=== PATIENT | female | born 1990 | race African-American/Black ===

== ENCOUNTER 2017-04-29 22:15 | Emergency (ER) | payer OTHER, SELFPAY ==
[2017-04-29 23:24] LABS: Bilirubin Small (Negative); Blood, Urine Negative (Negative); Clarity CLEAR (Clear); Glucose, Urine (Dipstick) Negative (Negative); Leukocyte Small (Negative); Nitrite Negative (Negative); Protein, Urine (Dipstick) Trace mg/dL (Neg-Trace); Specific Gravity, Urine 1.026 (1.002-1.036); pH, Urine 6.5 (5.0-9.0)
[2017-04-29 23:28] LABS: Bacteria/HPF Rare-Few HPF (None Seen); Hyaline Casts/LPF 0-3 HYALINE CAST LPF (0-3 Hyaline); Pathc Cast-AUWi Flag 0.13 (0-2.49); RBC/HPF 0-3 HPF (0-3); Squamous Epithelial 0-3 HPF (0-3)
[2017-04-29 23:29] LABS: Pregnancy Test - Urine (BHCG) Negative (Negative)
[2017-04-29 23:30] LABS: Pregu Control Background? CLEAR/WHITE (CLR/WHITE); Pregu Control Bar Appear? YES (CONTROL BAR); Specific Gravity 1.026 (1.002-1.036)
--- NOTE | 2017-04-29 23:31 | RAD ---
LUMBAR SPINE THREE VIEWS: History: Back pain. FINDINGS: Lumbar vertebra maintain normal height and alignment. Disc spaces are normally maintained. No evidenc e of spondylolisthesis. Five lumbar type vertebrae. IMPRESSION: Unremarkable lumbar spine. POS: [facility]
[2017-04-29] MEDS ORDERED: Diazepam 5 MG TAB ONE (23:36)
[2017-04-29] MEDS ORDERED: Ketorolac Tromethamine 30 MG/ML VIAL ONE (23:36)
== END 2017-04-30 00:18 | disposition home or self-care (01) ==
LOC: ERS 22:15
DX: N39.0 Urinary tract infection, site not specified (principal); M54.16 Radiculopathy, lumbar region
CPT/HCPCS: 72100; 81003; 81015; 81025; 96372; J1885

== ENCOUNTER 2017-10-24 11:48 | Emergency (ER) | payer SELFPAY ==
[2017-10-24] MEDS ORDERED: HYDROcodone/Acetaminophen 10/325 mg Tablet ONE (12:57)
[2017-10-24] MEDS ORDERED: Cyclobenzaprine 10 MG TAB ONE (12:57)
== END 2017-10-24 13:10 | disposition home or self-care (01) ==
LOC: ERS 11:48
DX: M54.42 Lumbago with sciatica, left side (principal)
CPT/HCPCS: 99283

== ENCOUNTER 2017-12-14 22:18 | Inpatient (IN) | payer SELFPAY ==
[2017-12-14 23:11] LABS: #Basophils 0.1 thou/uL (0.0-0.2); #Eosinphils 0.2 thou/uL (0.0-0.7); #Lymphocytes 3.5 thou/uL (1.20-3.40); #Monocytes 0.6 thou/uL (0.11-0.59); #Neutrophils 4.9 thou/uL (1.40-6.50); %Eosinophils 2.4 % (0.0-10.0); %Lymphocytes 37.7 % (21.0-51.0); %Monocytes 6.5 % (0.0-10.0); %Neutrophils 52.4 % (42.0-75.0); Hemoglobin 12.3 g/dL (12.0-16.0); Mean Corpuscular HGB CONC 33.4 g/dL (32.0-36.0); Mean Corpuscular Hemoglobin 28.9 pg (27.0-31.0); Mean Corpuscular Volume 86.5 fL (78.0-98.0); Mean Platelet Volume 10.5 fL (7.4-10.4); Platelet Count 307 thou/uL (130-400); RBC Distribution Width 13.2 % (11.5-14.5); Red Blood Cell (RBC) Count 4.25 mill/uL (4.20-5.40); White Blood Cell (WBC) Count 9.4 thou/uL (4.8-10.8)
[2017-12-14 23:32] LABS: ALT (SGPT) 76 U/L (8-55); AST (SGOT) 42 U/L (5-34); Albumin 3.9 g/dL (3.5-5.0); Alkaline Phosphatase 60 U/L (40-150); Anion Gap 13 mmol/L (10-20); BUN (Urea Nitrogen) 7 mg/dL (7.0-18.7); Bilirubin, Total 0.3 mg/dL (0.2-1.2); Calc. Creatinine Clearance 0 mL/min (70-130); Calcium 9.5 mg/dL (7.8-10.44); Carbon Dioxide 27 mmol/L (22-29); Chloride 101 mmol/L (98-107); Estimated GFR-MDRD Greater than 90; Glucose 87 mg/dL (70-105); Potassium 3.5 mmol/L (3.5-5.1); Protein, Total 7.9 g/dL (6.0-8.3); Sodium 137 mmol/L (136-145)
[2017-12-14 23:36] LABS: CKMB 0.4 ng/mL (0-6.6); Troponin I Less than 0.010 ng/mL (< 0.028)
[2017-12-15] MEDS ORDERED: Lidocaine Viscous Sol 2% 15 ml UD Cup ONE (01:15)
[2017-12-15] MEDS ORDERED: Mag-Al 1200 mg/1200 mg/30 ML UDCUP ONE (01:15)
[2017-12-15 01:21] LABS: BHCG - Serum Negative (NEGATIVE); Pregs Control Background? CLEAR/WHITE (CLR/WHITE); Pregs Control Bar Appear? YES (CONTROL BAR)
[2017-12-15] MEDS ORDERED: Piperacillin/Tazobactam 4.5 GM VIAL ONE (03:28)
[2017-12-15] MEDS ORDERED: Morphine 4 MG/ML VIAL SLOW IVP PRN (04:02)
[2017-12-15] MEDS ORDERED: Ondansetron HCl/PF 4 MG/2 ML Vial IVP PRN ×2 (04:02→11:13)
--- NOTE | 2017-12-15 04:22 | HP ---
CHIEF COMPLAINT: Right upper quadrant abdominal pain. HISTORY: This is a 27-year-old morbidly obese female with 3-day history of right upper quadrant pain . No radiation, no nausea or vomiting, no previous episodes. No change in bowels or urine. PAST MEDICAL HISTORY: Significant for morbid obesity. PAST SURGICAL HISTORY: She has had a section and a right oophorectomy for cyst. MEDICATIONS: She is on oral contraceptives for dysfunctional bleeding. ALLERGIES: No known drug allergies. SOCIAL HISTORY: She is single. She works in customer service. No tobacco, social alcohol. FAMILY HISTORY: Hypertension, arthritis. PHYSICAL EXAMINATION: GENERAL: She is an obese female lying still, in minimal distress. HEENT: No jaundice. LUNGS: Clear. HEART: Regular rate and rhythm. ABDOMEN: Obese, tender in the right upper quadrant. No palpable hernias. She has multiple well-hea led surgical scars from laparoscopic oophorectomy. EXTREMITIES: Unremarkable. LABORATORY DATA AND X-RAY FINDINGS: Her white count is 9.4, H&H 12 and 36, platelet count 307. Elec trolytes are fine. Her AST is 42, ALT is 76, total bilirubin of 0.3. HCG negative. IMAGING: Ultrasound shows a very large 11 cm, distended gallbladder with an impacted gallstone in th e neck. ASSESSMENT: Acute cholecystitis. PLAN: Laparoscopic cholecystectomy with possible cholangiogram. CONSENT: I have discussed the planned procedure as well as risk of bleeding, infection, injury to bi le duct, injury to bowel, need to open. She understands and gives informed consent.
[2017-12-15 05:31] VITALS: BMI 41.8
[2017-12-15] MEDS: cefOXitin 2 GM in Sodium Chloride 0.9% 100 ML IVPB SCH ×3 (06:12→21:55)
[2017-12-15 06:19] LABS: Pregnancy Test - Urine (BHCG) Negative (Negative); Pregu Control Background? CLEAR/WHITE (CLR/WHITE); Pregu Control Bar Appear? YES (CONTROL BAR); Specific Gravity 1.016 (1.002-1.036)
--- NOTE | 2017-12-15 08:39 | ULT ---
PRELIMINARY REPORT/[facility]/EMERGENCY AFTER HOURS PROCEDURE: EXAM: US Abdomen Limited, Right Upper Quadrant CLINICAL HISTORY: 27 years old, female; Pain; Other: Ruq pain, elevated lfts TECHNIQUE: Real-time ultrasound of the right upper quadrant with image documentation. COMPARISON: No relevant prior studies available. FINDINGS: At least two prominent 2 cm shadowing gallstones within the gallbladder, one in the region of the gal lbladder neck. There also appears to be some biliary sludge in the gallbladder. The gallbladder appears upper normal to mildly prominent in size. No definite gallbladder wall thickening or pericholecystic fluid. Technologist states patient is tender over the gallbladder region during scanning. No biliary dilation, common duct measures 3.6 mm. Unremarkable liver, no focal abnormality. Visible pancreas unremarkable. Images of the right kidney show no hydronephrosis. IMPRESSION: Cholelithiasis, see additional details above. No biliary tree dilation. Thank you for allowing us to participate in the care of your patient. Dictated and Authenticated by: Papa Sherwood MD 12/15/2017 2:04 AM Central Time ([place] & [place]) FINAL REPORT RIGHT UPPER QUADRANT ULTRASOUND: EMERGENT AFTER HOURS EXAM TIME: 1:22 a.m. DATE: 12/15/17. FINDINGS/IMPRESSION: Liver echogenicity is coarse throughout. Considerable gallstones within the gallbladder with minimal distention and sludge with a positive Kang's sign. No ductal dilatation. Report in agreement with preliminary report given on-call by Mio. POS: [facility]
[2017-12-15] MEDS ORDERED: Bupivacaine HCl 0.5%/Epinephrine 1:200,000/PF 30 ml Vial ONE (09:25)
[2017-12-15] MEDS ORDERED: Fentanyl 100 MCG/2 ML VIAL ONE ×3 (09:57→11:35)
[2017-12-15] MEDS ORDERED: CEFAZOLIN 1 GM VIAL ONE (10:18)
[2017-12-15] MEDS ORDERED: SUGAMMADEX SODIUM 200 MG/2 ML VIAL ONE (11:06)
[2017-12-15] MEDS ORDERED: hydrALAZINE 20 MG/ML VIAL SLOW IVP PRN (11:13)
[2017-12-15] MEDS ORDERED: Promethazine HCl 25 MG/ML VIAL IM PRN (11:13)
[2017-12-15] MEDS ORDERED: Calcium Carbonate 500 MG ChewTAB PO PRN (11:13)
[2017-12-15] MEDS ORDERED: Mag-Al 1200 mg/1200 mg/30 ML UDCUP PO PRN (11:13)
[2017-12-15] MEDS ORDERED: HYDROcodone/Acetaminophen 10/325 mg Tablet PO PRN (11:13)
[2017-12-15] MEDS ORDERED: Dextrose 50% Abboject 50 ML SYRINGE SLOW IVP PRN (11:13)
[2017-12-15] MEDS ORDERED: Dextrose 5% in Water 1,000 ML IV PRN (11:13)
--- NOTE | 2017-12-15 11:15 | RAD ---
CHEST PA AND LATERAL: HISTORY: A 27-year-old female with a history of epigastric abdominal pain burning down throat into stomach. FINDINGS/ IMPRESSION: Heart size is normal. The lungs are clear. No pneumonia, edema, or pleural effusions or other acute process. POS: [facility]
--- NOTE | 2017-12-15 12:32 | OP ---
PREOPERATIVE DIAGNOSIS: Acute cholecystitis. SURGEON: Ilya Sorto M.D. PROCEDURE PERFORMED: Laparoscopic cholecystectomy. INDICATIONS: A 27-year-old female with a 2-day history of severe right upper quadrant pain associate d with nausea. Ultrasound shows a distended gallbladder with an impacted gallstone, thickened wall. FINDINGS: A thickened wall. The bile was thick and creamy. There was a large impacted gallstone at the neck, a small cystic duct. PROCEDURE: After informed consent was obtained, the patient was taken to the operating room and give n general endotracheal anesthesia. She was placed in the supine position. The abdomen was prepped a nd draped in usual fashion. Local anesthesia infiltrated subcutaneously and deep, then a small midli ne incision was performed just above the umbilicus. The subcu divided sharply. The fascia grasped a nd two stay sutures placed on either side of midline. Midline incised. Digital palpation revealed n o local adhesions. A blunt 10-12 mm trocar inserted. Pneumoperitoneum was created to a pressure of 15 mmHg. Zero degree laparoscope inserted and under direct vision, three 5 mm ports placed subcostal ly. The gallbladder was very distended. An aspirating needle was inserted within the gallbladder an d 60 mL of thick brownish bile was removed. This was sent for culture. The gallbladder then grasped and advanced superiorly. The peritoneum dissected distally to expose the duct artery and critical v iew. These were triply ligated with Hemoclips and divided. The gallbladder was removed from its fos sa utilizing electrocautery. It was placed in an Endosac and removed from the abdomen in the Endosac . Hemostasis was assured. Trocars and retractors removed. The fascia closed with interrupted 0 Jensen ryl suture. The skin closed with interrupted 4-0 Rapide. Dermabond applied. The patient tolerated the procedure well and was transferred to recovery in good condition. Sponge and needle count verifi ed correct x2.
[2017-12-15] MEDS: Ketorolac Tromethamine 30 MG/ML VIAL IVP SCH ×2 (13:15→18:07)
[2017-12-15] MEDS: D5 1/2 NS w/20 mEq KCL 1,000 ML IV SCH ×2 (13:15→21:56)
[2017-12-15] MEDS ORDERED: Ondansetron HCl/PF 4 MG/2 ML Vial ONE (15:08)
[2017-12-15] MEDS ORDERED: Glycopyrrolate 0.2 MG/ML 5 ML SYRINGE ONE (15:08)
[2017-12-15] MEDS ORDERED: Ketorolac Tromethamine 30 MG/ML VIAL ONE (15:08)
[2017-12-15] MEDS ORDERED: PROPOFOL 200 MG/20 ML VIAL ONE (15:08)
[2017-12-15] MEDS ORDERED: Dexamethasone 20 MG/5 ML VIAL ONE (15:08)
[2017-12-15] MEDS: HYDROcodone/Acetaminophen 10/325 mg Tablet PO PRN (16:11)
[2017-12-15] MEDS: Famotidine 20 MG TAB PO SCH (21:56)
[2017-12-15] MEDS: Famotidine/PF 20 mg/2ml Vial SLOW IVP SCH (23:04)
[2017-12-16] MEDS: Ketorolac Tromethamine 30 MG/ML VIAL IVP SCH ×3 (00:01→12:03)
[2017-12-16] MEDS: D5 1/2 NS w/20 mEq KCL 1,000 ML IV SCH (04:19)
[2017-12-16 04:29] LABS: ALT (SGPT) 81 U/L (8-55); AST (SGOT) 52 U/L (5-34); Albumin 3.5 g/dL (3.5-5.0); Alkaline Phosphatase 60 U/L (40-150); Anion Gap 14 mmol/L (10-20); BUN (Urea Nitrogen) 6 mg/dL (7.0-18.7); Bilirubin, Total 0.4 mg/dL (0.2-1.2); Calc. Creatinine Clearance 263 mL/min (70-130); Calcium 9.2 mg/dL (7.8-10.44); Carbon Dioxide 23 mmol/L (22-29); Chloride 103 mmol/L (98-107); Estimated GFR-MDRD Greater than 90; Globulin 3.7 g/dL (2.4-3.5); Glucose 94 mg/dL (70-105); Potassium 3.6 mmol/L (3.5-5.1); Protein, Total 7.2 g/dL (6.0-8.3); Sodium 136 mmol/L (136-145)
[2017-12-16 04:39] LABS: #Basophils 0.1 thou/uL (0.0-0.2); #Lymphocytes 1.7 thou/uL (1.20-3.40); #Monocytes 0.6 thou/uL (0.11-0.59); #Neutrophils 6.6 thou/uL (1.40-6.50); %Basophils 0.6 % (0.0-1.0); %Eosinophils 0.1 % (0.0-10.0); %Lymphocytes 18.9 % (21.0-51.0); %Monocytes 6.7 % (0.0-10.0); %Neutrophils 73.7 % (42.0-75.0); Hemoglobin 12.2 g/dL (12.0-16.0); Mean Corpuscular HGB CONC 32.9 g/dL (32.0-36.0); Mean Corpuscular Hemoglobin 28.6 pg (27.0-31.0); Mean Corpuscular Volume 86.9 fL (78.0-98.0); Platelet Count 251 thou/uL (130-400); RBC Distribution Width 13.2 % (11.5-14.5); Red Blood Cell (RBC) Count 4.25 mill/uL (4.20-5.40)
[2017-12-16] MEDS: cefOXitin 2 GM in Sodium Chloride 0.9% 100 ML IVPB SCH (05:58)
[2017-12-16] MEDS: Famotidine/PF 20 mg/2ml Vial SLOW IVP SCH (08:50)
[2017-12-16] MEDS ORDERED: Enoxaparin Sodium 40 MG/0.4 ML SYRINGE SC SCH (09:00)
[2017-12-16] MEDS: Famotidine 20 MG TAB PO SCH (09:42)
[2017-12-16] MEDS: HYDROcodone/Acetaminophen 10/325 mg Tablet PO PRN (12:01)
[2017-12-16 13:09] VITALS: BP 161/75; TEMP 98.4
--- NOTE | 2017-12-16 15:14 | DIS ---
DATE OF ADMISSION: 12/15/2017 DATE OF DISCHARGE: 12/16/2017 DISCHARGE DIAGNOSIS: Acute cholecystitis. PROCEDURES DURING ADMISSION: Laparoscopic cholecystectomy. HOSPITAL COURSE: The patient was admitted, given IV fluids, IV antibiotics, taken to the operating r oom where she underwent a laparoscopic cholecystectomy. Postoperatively, she has done well. Pain is minimal. She is tolerating a regular diet. She is discharged home on hydrocodone and Zofran. She will follow up with me in 2 weeks.
== END 2017-12-16 12:20 | disposition home or self-care (01) | DRG 418 ==
LOC: ERS 22:18 → SURG A 12-15 05:12
PROVIDERS: ADMIT Surgery; ATTEND Surgery
PROC: 0FT44ZZ Resection of Gallbladder, Percutaneous Endoscopic Approach (ICD-10-PCS; principal; 2017-12-15)
DX: K81.0 Acute cholecystitis (principal); Z68.41 Body mass index [BMI] 40.0-44.9, adult; E66.01 Morbid (severe) obesity due to excess calories
CPT/HCPCS: 36415; 71046; 76705; 80053; 81025; 82553; 83690; 84484; 84703; 85025; 87070; 87205; 88304; 93005; 96365; A4216; J0131; J0670; J0690; J0694; J1100; J1885; J2405; J2543; J2704; J3010; J7050; S0028

== ENCOUNTER 2020-02-03 10:09 | Emergency (ER) | payer SELFPAY ==
[2020-02-03 10:48] LABS: #Basophils 0.1 thou/uL (0.0-0.2); #Eosinphils 0.2 thou/uL (0.0-0.7); #Monocytes 0.6 thou/uL (0.11-0.59); #Neutrophils 5.3 thou/uL (1.40-6.50); %Basophils 1.3 % (0.0-1.0); %Eosinophils 2.2 % (0.0-10.0); %Lymphocytes 32.8 % (21.0-51.0); %Monocytes 6.4 % (0.0-10.0); %Neutrophils 57.3 % (42.0-75.0); Hemoglobin 13.2 g/dL (12.0-16.0); Mean Corpuscular HGB CONC 33.4 g/dL (32.0-36.0); Mean Corpuscular Hemoglobin 29.2 pg (27.0-31.0); Mean Corpuscular Volume 87.3 fL (78.0-98.0); Mean Platelet Volume 9.5 fL (7.4-10.4); Platelet Count 323 thou/uL (130-400); RBC Distribution Width 12.7 % (11.5-14.5); White Blood Cell (WBC) Count 9.2 thou/uL (4.8-10.8)
[2020-02-03 10:53] LABS: BHCG - Serum Negative (NEGATIVE); Pregs Control Background? CLEAR/WHITE (CLR/WHITE); Pregs Control Bar Appear? YES (CONTROL BAR)
[2020-02-03 11:27] LABS: ALT (SGPT) 17 U/L (8-55); AST (SGOT) 15 U/L (5-34); Albumin 3.5 g/dL (3.5-5.0); Alkaline Phosphatase 58 U/L (40-110); Anion Gap 13 mmol/L (10-20); BUN (Urea Nitrogen) 7 mg/dL (7.0-18.7); Bilirubin, Total 0.3 mg/dL (0.2-1.2); Calc. Creatinine Clearance 0 mL/min (70-130); Calcium 9.1 mg/dL (7.8-10.44); Carbon Dioxide 23 mmol/L (22-29); Chloride 105 mmol/L (98-107); Estimated GFR-MDRD Greater than 90; Globulin 4.2 g/dL (2.4-3.5); Glucose 82 mg/dL (70-105); Lipase 14 U/L (8-78); Potassium 3.6 mmol/L (3.5-5.1); Protein, Total 7.7 g/dL (6.0-8.3); Sodium 137 mmol/L (136-145)
[2020-02-03 13:04] LABS: Bacteria/HPF None Seen HPF (None Seen); Bilirubin Negative (Negative); Blood, Urine Negative (Negative); Clarity Clear (Clear); Glucose, Urine (Dipstick) Normal (Negative); Ketone, Urine Negative (Negative); Leukocyte 25 Leu/uL (Negative); Nitrite Negative (Negative); Protein, Urine (Dipstick) Negative (Neg-Trace); RBC/HPF 0-3 HPF (0-3); Specific Gravity, Urine 1.013 (1.002-1.036); Squamous Epithelial 0-3 HPF (0-3); Urobilinogen Normal mg/dL (Less than 2); WBC/HPF 0-3 HPF (0-3); pH, Urine 6.5 (5.0-9.0)
--- NOTE | 2020-02-03 13:26 | CT ---
CT ABDOMEN AND PELVIS WITHOUT CONTRAST: Date: 02/03/2020 HISTORY: Abdominal pain in right upper quadrant radiating to the epigastric area. Diarrhea. FINDINGS: Comparison made with the contrast enhanced exam of 03/27/2014. Absence of oral and IV contrast reduces the sensitivity of exam, particularly for evaluation of solid organs and bowel. The lung bases are clear. The patient is post cholecystectomy. No free air or free fluid is seen in the abdomen or pelvis. The small bowel loops are not abnormally dilated. A normal appearing appendix is present. No calculi noted in the kidneys, ureters, or the urinary bladder. No hydroureteronephrosis is noted o n either side. Uterus is present. The aorta is of normal caliber. Bony structures are unremarkable. IMPRESSION: No CT evidence of urinary tract calculi/obstruction or appendicitis. POS: [facility]
== END 2020-02-03 12:50 | disposition home or self-care (01) ==
LOC: ERS 10:09
DX: R10.9 Unspecified abdominal pain (principal); R19.7 Diarrhea, unspecified; Z79.899 Other long term (current) drug therapy
CPT/HCPCS: 36415; 74176; 80053; 81003; 81015; 83690; 84703; 85025

== ENCOUNTER 2020-02-04 19:35 | Emergency (ER) | payer BC, SELFPAY ==
[2020-02-04 20:05] LABS: Bilirubin Negative (Negative); Blood, Urine Negative (Negative); Clarity Clear (Clear); Glucose, Urine (Dipstick) Normal (Negative); Ketone, Urine Negative (Negative); Leukocyte 75 Leu/uL (Negative); Nitrite Negative (Negative); Pregnancy Test - Urine (BHCG) Negative (Negative); Pregu Control Background? CLEAR/WHITE (CLR/WHITE); Pregu Control Bar Appear? YES (CONTROL BAR); Protein, Urine (Dipstick) Negative (Neg-Trace); RBC/HPF 0-3 HPF (0-3); Specific Gravity 1.019 (1.002-1.036); Specific Gravity, Urine 1.019 (1.002-1.036); Squamous Epithelial 0-3 HPF (0-3); Urobilinogen Normal mg/dL (Less than 2); pH, Urine 6.5 (5.0-9.0)
[2020-02-04 20:06] LABS: Bacteria/HPF 1+ HPF (None Seen)
[2020-02-04] MEDS ORDERED: Lidocaine Viscous Sol 2% 15 ml UD Cup ONE (22:12)
[2020-02-04] MEDS ORDERED: Mag-Al 1200 mg/1200 mg/30 ML UDCUP ONE (22:12)
== END 2020-02-04 22:44 | disposition home or self-care (01) ==
LOC: ERS 19:35
DX: R14.0 Abdominal distension (gaseous) (principal); R10.9 Unspecified abdominal pain
CPT/HCPCS: 81003; 81015; 81025; 99284

== ENCOUNTER 2020-04-16 15:26 | Emergency (ER) | payer BC, SELFPAY ==
--- NOTE | 2020-04-16 15:48 | RAD ---
XR Chest 1 View Portable HISTORY: Dyspnea, chest pain, syncope COMPARISON: 12/27/2017 FINDINGS: The heart size is normal. The lungs are well expanded without focal areas of consolidation, pneumothorax or pleural effusions. IMPRESSION: No radiographic evidence of acute cardiopulmonary process.
[2020-04-16 16:05] LABS: #Basophils 0.1 thou/uL (0.0-0.2); #Eosinphils 0.2 thou/uL (0.0-0.7); #Lymphocytes 3.5 thou/uL (1.20-3.40); #Monocytes 0.7 thou/uL (0.11-0.59); #Neutrophils 8.5 thou/uL (1.40-6.50); %Basophils 0.9 % (0.0-1.0); %Eosinophils 1.3 % (0.0-10.0); %Lymphocytes 26.9 % (21.0-51.0); %Monocytes 5.5 % (0.0-10.0); %Neutrophils 65.4 % (42.0-75.0); Hemoglobin 12.9 g/dL (12.0-16.0); Mean Corpuscular HGB CONC 32.5 g/dL (32.0-36.0); Mean Corpuscular Hemoglobin 28.4 pg (27.0-31.0); Mean Corpuscular Volume 87.3 fL (78.0-98.0); Mean Platelet Volume 9.9 fL (7.4-10.4); Platelet Count 338 thou/uL (130-400); RBC Distribution Width 13.6 % (11.5-14.5); Red Blood Cell (RBC) Count 4.54 mill/uL (4.20-5.40)
[2020-04-16 16:25] LABS: BHCG - Serum Negative (NEGATIVE); Pregs Control Background? CLEAR/WHITE (CLR/WHITE); Pregs Control Bar Appear? YES (CONTROL BAR)
[2020-04-16 16:33] LABS: ALT (SGPT) 24 U/L (8-55); AST (SGOT) 20 U/L (5-34); Albumin 3.8 g/dL (3.5-5.0); Alkaline Phosphatase 68 U/L (40-110); Anion Gap 16 mmol/L (10-20); BUN (Urea Nitrogen) 8 mg/dL (7.0-18.7); Bilirubin, Total 0.2 mg/dL (0.2-1.2); CK (CPK) 64 U/L (29-168); Calc. Creatinine Clearance 0 mL/min (70-130); Calcium 9.3 mg/dL (7.8-10.44); Carbon Dioxide 23 mmol/L (22-29); Chloride 103 mmol/L (98-107); Globulin 4.1 g/dL (2.4-3.5); Glucose 83 mg/dL (70-105); Lipase 12 U/L (8-78); Potassium 3.9 mmol/L (3.5-5.1); Protein, Total 7.9 g/dL (6.0-8.3); Sodium 138 mmol/L (136-145)
[2020-04-16 16:54] LABS: Bilirubin Negative (Negative); Blood, Urine Negative (Negative); Clarity Clear (Clear); Glucose, Urine (Dipstick) Normal (Negative); Ketone, Urine Negative (Negative); Leukocyte 25 Leu/uL (Negative); Nitrite Negative (Negative); Protein, Urine (Dipstick) Negative (Neg-Trace); RBC/HPF 0-3 HPF (0-3); Specific Gravity, Urine 1.016 (1.002-1.036); Urobilinogen Normal mg/dL (Less than 2)
[2020-04-16 16:55] LABS: Bacteria/HPF 1+ HPF (None Seen)
[2020-04-16] MEDS ORDERED: Acetaminophen 500 MG TAB ONE (18:47)
[2020-04-16 20:19] LABS: Troponin I Less than 0.010 ng/mL (< 0.028)
== END 2020-04-16 21:19 | disposition home or self-care (01) ==
LOC: ERS 15:26
DX: R07.89 Other chest pain (principal)
CPT/HCPCS: 36415; 71045; 80053; 81003; 81015; 82550; 83690; 84443; 84484; 84703; 85025; 85379; 93005

== ENCOUNTER 2021-10-17 10:29 | Emergency (ER) | payer SELFPAY ==
[2021-10-17 10:52] LABS: #Basophils 0.1 thou/uL (0.0-0.2); #Eosinphils 0.1 thou/uL (0.0-0.7); #Lymphocytes 2.2 thou/uL (1.20-3.40); #Monocytes 0.7 thou/uL (0.11-0.59); #Neutrophils 6.7 thou/uL (1.40-6.50); %Basophils 0.8 % (0.0-1.0); %Eosinophils 1.4 % (0.0-10.0); %Monocytes 7.3 % (0.0-10.0); %Neutrophils 68.4 % (42.0-75.0); Hemoglobin 13.4 g/dL (12.0-16.0); Mean Corpuscular HGB CONC 31.6 g/dL (32.0-36.0); Mean Corpuscular Hemoglobin 28.4 pg (27.0-31.0); Mean Corpuscular Volume 89.7 fL (78.0-98.0); Mean Platelet Volume 9.3 fL (7.4-10.4); Platelet Count 368 thou/uL (130-400); RBC Distribution Width 13.1 % (11.5-14.5); Red Blood Cell (RBC) Count 4.74 mill/uL (4.20-5.40); White Blood Cell (WBC) Count 9.8 thou/uL (4.8-10.8)
[2021-10-17 11:20] LABS: ALT (SGPT) 11 U/L (8-55); AST (SGOT) 11 U/L (5-34); Albumin 3.8 g/dL (3.5-5.0); Alkaline Phosphatase 64 U/L (40-110); Anion Gap 13 mmol/L (10-20); BUN (Urea Nitrogen) 7 mg/dL (7.0-18.7); Bilirubin, Total 0.5 mg/dL (0.2-1.2); Calc. Creatinine Clearance 0 mL/min (70-130); Calcium 9.3 mg/dL (7.8-10.44); Carbon Dioxide 25 mmol/L (22-29); Chloride 104 mmol/L (98-107); Estimated GFR 113; Globulin 4.3 g/dL (2.4-3.5); Glucose 85 mg/dL (70-105); Lipase 10 U/L (8-78); Potassium 3.6 mmol/L (3.5-5.1); Protein, Total 8.1 g/dL (6.0-8.3); Sodium 138 mmol/L (136-145)
[2021-10-17] MEDS ORDERED: Ondansetron ODT 4 MG TAB ONE (13:24)
[2021-10-17 14:00] LABS: Bilirubin Negative (Negative); Blood, Urine Negative (Negative); Glucose, Urine (Dipstick) Negative (Negative); Ketone, Urine Negative (Negative); Leukocyte Moderate (Negative); Nitrite Negative (Negative); Protein, Urine (Dipstick) Negative (Neg-Trace); Specific Gravity, Urine 1.025 (1.005-1.030); Urobilinogen 0.2 mg/dL (Less than 2)
[2021-10-17 14:05] LABS: Clarity Hazy (Clear)
[2021-10-17 14:06] LABS: Bacteria/HPF 1+ HPF (None Seen); RBC/HPF 0-3 HPF (0-3); Squamous Epithelial 21-50 HPF (0-3)
[2021-10-17 14:07] LABS: Pregnancy Test - Urine (BHCG) Negative (Negative); Pregu Control Background? CLEAR/WHITE (CLR/WHITE); Pregu Control Bar Appear? YES (CONTROL BAR); Specific Gravity 1.025 (1.002-1.036)
== END 2021-10-17 14:02 | disposition home or self-care (01) ==
LOC: ERS 10:29
DX: R19.7 Diarrhea, unspecified (principal); R11.2 Nausea with vomiting, unspecified; R10.9 Unspecified abdominal pain; I10 Essential (primary) hypertension
CPT/HCPCS: 36415; 80053; 81003; 81015; 81025; 83690; 85025; 99284; Q0162

== ENCOUNTER 2022-05-23 21:58 | Emergency (ER) | payer MEDICAID, SELFPAY ==
[2022-05-24 00:02] LABS: #Basophils 0.1 thou/uL (0.0-0.2); #Monocytes 1.2 thou/uL (0.11-0.59); #Neutrophils 12.9 thou/uL (1.40-6.50); %Basophils 0.4 % (0.0-1.0); %Eosinophils 0.2 % (0.0-10.0); %Lymphocytes 17.2 % (21.0-51.0); %Neutrophils 75.2 % (42.0-75.0); Hemoglobin 13.2 g/dL (12.0-16.0); Mean Corpuscular HGB CONC 33.6 g/dL (32.0-36.0); Mean Corpuscular Hemoglobin 29.6 pg (27.0-31.0); Mean Corpuscular Volume 88.1 fl (78.0-98.0); Mean Platelet Volume 9.5 fL (7.4-10.4); Platelet Count 375 10x3/uL (130-400); RBC Distribution Width 13.3 % (11.5-14.5); Red Blood Cell (RBC) Count 4.45 mill/uL (4.20-5.40); White Blood Cell (WBC) Count 17.1 10x3/uL (4.8-10.8)
[2022-05-24 00:07] LABS: BHCG - Serum Negative (NEGATIVE); Pregs Control Background? CLEAR/WHITE (CLR/WHITE); Pregs Control Bar Appear? YES (CONTROL BAR)
[2022-05-24 00:22] LABS: ALT (SGPT) Less than 7 U/L (8-55); AST (SGOT) 12 U/L (5-34); Albumin 3.8 g/dL (3.5-5.0); Alkaline Phosphatase 65 U/L (40-110); Anion Gap 12 mmol/L (10-20); BUN (Urea Nitrogen) 7 mg/dL (7.0-18.7); Bilirubin, Total 0.7 mg/dL (0.2-1.2); Calc. Creatinine Clearance 0 mL/min (70-130); Calcium 9.4 mg/dL (7.8-10.44); Carbon Dioxide 24 mmol/L (22-29); Chloride 102 mmol/L (98-107); Estimated GFR 110; Globulin 4.6 g/dL (2.4-3.5); Glucose 84 mg/dL (70-105); Lipase 13 U/L (8-78); Potassium 3.6 mmol/L (3.5-5.1); Protein, Total 8.4 g/dL (6.0-8.3); Sodium 134 mmol/L (136-145)
[2022-05-24] MEDS ORDERED: Lidocaine Viscous Sol 2% 15 ml UD Cup ONE (00:27)
[2022-05-24] MEDS ORDERED: Mag-Al 1200 mg/1200 mg/30 ML UDCUP ONE (00:27)
[2022-05-24] MEDS ORDERED: Iopamidol 370 76% 100 ML VIAL ONE (08:58)
== END 2022-05-24 02:00 | disposition home or self-care (01) ==
LOC: ERS 21:58
DX: K57.32 Diverticulitis of large intestine without perforation or abscess without bleeding (principal)
CPT/HCPCS: 36415; 74177; 80053; 83690; 84703; 85025; 86140; 96360; Q9967

== ENCOUNTER 2022-07-19 06:32 | Emergency (ER) | payer SELFPAY ==
[2022-07-19] MEDS ORDERED: Ketorolac Tromethamine 30 MG/ML VIAL ONE (07:18)
== END 2022-07-19 07:35 | disposition home or self-care (01) ==
LOC: ERS 06:32
DX: K08.89 Other specified disorders of teeth and supporting structures (principal); K04.01 Reversible pulpitis
CPT/HCPCS: 96372; 99282; J1885

== ENCOUNTER 2023-01-26 01:53 | Emergency (ER) | payer OTHER, SELFPAY ==
[2023-01-26] MEDS ORDERED: Morphine 4 MG/ML VIAL ONE (04:54)
[2023-01-26] MEDS ORDERED: Ketorolac Tromethamine 30 MG/ML VIAL ONE (04:54)
== END 2023-01-26 05:25 | disposition home or self-care (01) ==
LOC: ERS 01:53
DX: S93.401A Sprain of unspecified ligament of right ankle, initial encounter (principal); W17.2XXA Fall into hole, initial encounter; Y92.096 Garden or yard of other non-institutional residence as the place of occurrence of the external cause
CPT/HCPCS: 96372; J1885; J2270

== ENCOUNTER 2023-02-19 13:02 | Emergency (ER) | payer SELFPAY ==
[2023-02-19] MEDS ORDERED: Cyclobenzaprine 10 MG TAB ONE (14:29)
[2023-02-19] MEDS ORDERED: Ketorolac Tromethamine 30 MG/ML VIAL ONE (14:29)
== END 2023-02-19 14:55 | disposition home or self-care (01) ==
LOC: ERS 13:02
DX: M54.41 Lumbago with sciatica, right side (principal)
CPT/HCPCS: 96372; 99283; J1885

== ENCOUNTER 2024-12-31 11:28 | Emergency (ER) | payer OTHER ==
[2024-12-31] MEDS ORDERED: Ketorolac Tromethamine 30 MG (1 mL) VIAL ONE (12:09)
== END 2024-12-31 12:14 | disposition home or self-care (01) ==
LOC: ERS 11:28
DX: K08.89 Other specified disorders of teeth and supporting structures (principal); K02.9 Dental caries, unspecified
CPT/HCPCS: 96372; 99282; J1885